=== PATIENT | male | born 1970 | race Caucasian/White ===

== ENCOUNTER 2017-03-06 14:27 | Emergency (ER) | payer MEDICAID ==
[~2017-03-06] VITALS: Ht 170.2 cm; Wt 67.0 kg
[~2017-03-06 14:27] MED LIST: CIPR500T2 PO; FENT50T T-DERMAL; HYDR-3366 PO; LORA-373 PO; METR500T10 PO; PANT20TA2 PO; PROM25TA5 PO; WARF-23 PO; ZOFR4TAB3 SL
[2017-03-06 14:47] VITALS: BP 161/91; PULSE 58; RESP 22; TEMP 97.6
[2017-03-06] MEDS ORDERED: SODIUM CHLORIDE 0.9% FLUSH 10 ML FLUSH IVF PRN (15:00)
[2017-03-06] MEDS ORDERED: SODIUM CHLOR 0.9% 1000 ML INJ 1,000 ML IV ONE (15:00)
--- NOTE | 2017-03-06 15:09 | PD ---
HPI Chief Complaint: Seizure Time Seen by Provider: 14:48 Travel History International Travel<30 days: No Contact w/Intl Traveler<30days: No Traveled to known affect area: No History of Present Illness HPI But they haven't found out what causes seizures yet. The patient states that he is currently weaning off fentanyl and his doctor is cutting his doses down because they do not want him on chronic pain medicine. He is on chronic pain medicine for abdominal pain secondary to chronic gastroparesis. No family members available at the bedside initially but nursing convey that the girlfriend stated that the patient was told that he was not having seizures on several prior evaluations. Patient also endorses some nausea and vomiting for the past couple of days. States he is able to tolerate Pedialyte at home. Symptoms are moderate, constant, context is fentanyl withdrawal, duration is the past few days. PFSH Past Medical History Hx Anticoagulant Therapy: Yes (warfarin) Arthritis: No Asthma: No Autoimmune Disease: No Blood Disorders: No Anxiety: Yes Depression: No Heart Rhythm Problems: No Cancer: No Cardiovascular Problems: No High Cholesterol: Yes Chemotherapy: No Chest Pain: Yes Congestive Heart Failure: No COPD: No Cerebrovascular Accident: No Diabetes: Yes Diminished Hearing: No Endocrine: No Gastrointestinal Disorders: Yes (GASTROPARESIS) GERD: Yes Genitourinary: Yes Headaches: Yes Hiatal Hernia: Yes Hypertension: No Immune Disorder: No Implanted Vascular Access Dvce: No Kidney Stones: Yes Musculoskeletal: Yes (CRAMPING IN LEGS) Neurologic: Yes (NUMBNESS HANDS AND LEGS, VERTIGO) Psychiatric: Yes Reproductive: No Respiratory: No Immunizations Current: Yes Migraines: Yes Radiation Therapy: No Renal Failure: No Seizures: Yes (possibly) Sleep Apnea: No Thyroid Disease: No Ulcer: No ?: Not Past Surgical History Abdominal Surgery: Yes (UMBILICAL HERNIA REPAIR,J-TUBE PLACEMENT, J-TUBE REMOVAL) AICD: No Cardiac Surgery: No Ear Surgery: No Endocrine Surgery: No Eye Surgery: No Genitourinary Surgery: No Gynecologic Surgery: No Joint Replacement: No Neurologic Surgery: No Oral Surgery: No Pacemaker: No Thoracic Surgery: No Other Surgery: Yes (UMBILICAL HERNIA REPAIR, J-TUBE PLACEMENT) Social History Alcohol Use: No Tobacco Use: No Substance Use: Yes (MARIJUANA OCCAS) Allergies-Medications (Allergen,Severity, Reaction): Coded Allergies: metoclopramide (Unverified Adverse Reaction, Unknown, DIZZY, SYNCOPAL EPISODES , 03/06/17) Reported Meds & Prescriptions Reported Meds & Active Scripts Active Reported Phenergan (Promethazine HCl) 25 Mg Tablet 25 Mg PO Q6H PRN Warfarin 5 Mg Tab 5 Mg PO DAILY@1600 Pantoprazole (Pantoprazole Sodium) 20 Mg Tab 20 Mg PO BID Zofran Odt (Ondansetron Odt) 4 Mg Tab 4 Mg SL DIRECTED PRN Convoy (Hydrocodone-Acetaminophen) 10-325 Mg Tab 1 Tab PO Q6H PRN Lorazepam 0.5 Mg Tab 0.5 Mg PO BID Duragesic Patch 72 HR (Fentanyl) 50 Mcg/Hr Patch 50 Mcg T-DERMAL Q72H Remove old patch when new one placed. Review of Systems Except as stated in HPI: all other systems reviewed are Neg Physical Exam Narrative GENERAL: Well-developed well-nourished, no obvious distress. SKIN: Focused skin assessment warm/dry. HEAD: Atraumatic. Normocephalic. EYES: Pupils equal and round. No scleral icterus. No injection or drainage. ENT: No nasal bleeding or discharge. Mucous membranes pink and moist. No tongue laceration. NECK: Trachea midline. No JVD. CARDIOVASCULAR: Regular rate and rhythm. No murmur appreciated. RESPIRATORY: No accessory muscle use. Clear to auscultation. Breath sounds equal bilaterally. GASTROINTESTINAL: Abdomen soft, non-tender, nondistended. Hepatic and splenic margins not palpable. Normal active bowel sounds. No rebound no percussive tenderness. MUSCULOSKELETAL: No obvious deformities. No clubbing. No cyanosis. No edema. NEUROLOGICAL: Awake and alert. Cranial nerves II-12 are grossly intact and nonfocal, 5 out of 5 strength in all 4 extremities. The patient was observed and have seizure-like activity a very fast shake of his upper extremities which was able to be stopped by doing a sternal rub and the patient had no postictal phase following the tremor. PSYCHIATRIC: Appropriate mood and affect; insight and judgment normal. Data Data Last Documented VS Vital Signs Date Time Temp Pulse Resp B/P (MAP) Pulse Ox O2 Delivery O2 Flow Rate FiO2 03/06/17 17:11 40 14 143/83 (103) 100 Room Air 03/06/17 14:47 97.6 Orders Orders Electrocardiogram (03/06/17 14:56) Complete Blood Count With Diff (10/11/17 14:56) Comprehensive Metabolic Panel (03/06/17 14:56) Magnesium (Mg) (03/06/17 14:56) Prothrombin Time / Inr (Pt) (03/06/17 14:56) Act Partial Throm Time (Ptt) (03/06/17 14:56) Lipase (03/06/17 14:56) Ecg Monitoring (03/06/17 14:56) Iv Access Insert/Monitor (03/06/17 14:56) Oximetry (03/06/17 14:56) Oxygen Administration (03/06/17 14:56) Sodium Chloride 0.9% Flush (Ns Flush) (03/06/17 15:00) Ct Brain W/O Iv Contrast(Rout) (03/06/17 ) Sodium Chlor 0.9% 1000 Ml Inj (Ns 1000 M (03/06/17 15:00) Ondansetron Inj (Zofran Inj) (03/06/17 16:30) Promethazine Inj (Phenergan Inj) (03/06/17 17:30) Ed Discharge Order (03/06/17 17:41) Labs Laboratory Tests Test 03/06/17 15:15 White Blood Count 17.1 TH/MM3 Red Blood Count 4.70 MIL/MM3 Hemoglobin 14.1 GM/DL Hematocrit 42.3 % Mean Corpuscular Volume 90.0 FL Mean Corpuscular Hemoglobin 30.1 PG Mean Corpuscular Hemoglobin Concent 33.4 % Red Cell Distribution Width 14.3 % Platelet Count 227 TH/MM3 Mean Platelet Volume 10.1 FL Neutrophils (%) (Auto) 90.0 % Lymphocytes (%) (Auto) 6.8 % Monocytes (%) (Auto) 2.7 % Eosinophils (%) (Auto) 0.3 % Basophils (%) (Auto) 0.2 % Neutrophils # (Auto) 15.4 TH/MM3 Lymphocytes # (Auto) 1.2 TH/MM3 Monocytes # (Auto) 0.5 TH/MM3 Eosinophils # (Auto) 0.0 TH/MM3 Basophils # (Auto) 0.0 TH/MM3 CBC Comment DIFF FINAL Differential Comment Prothrombin Time 12.1 SEC Prothromb Time International Ratio 1.1 RATIO Activated Partial Thromboplast Time 30.0 SEC Blood Urea Nitrogen 6 MG/DL Creatinine 0.89 MG/DL Random Glucose 136 MG/DL Total Protein 7.6 GM/DL Albumin 3.9 GM/DL Calcium Level 8.9 MG/DL Magnesium Level 1.9 MG/DL Alkaline Phosphatase 113 U/L Aspartate Amino Transf (AST/SGOT) 16 U/L Alanine Aminotransferase (ALT/SGPT) 16 U/L Total Bilirubin 0.6 MG/DL Sodium Level 138 MEQ/L Potassium Level 4.1 MEQ/L Chloride Level 106 MEQ/L Carbon Dioxide Level 23.2 MEQ/L Anion Gap 9 MEQ/L Estimat Glomerular Filtration Rate 92 ML/MIN Lipase 104 U/L [facility] Medical Decision Making Medical Screen Exam Complete: Yes Emergency Medical Condition: Yes Differential Diagnosis Seizure, pseudoseizure, electrolyte abnormality, opiate withdrawal. Narrative Course Patient roomed emerged department, had several episodes of dry heaving, one episode of what appeared to be pseudoseizure. Patient's labs are reassuring other than a white blood cell count of 17,000. Electrolytes are within normal limits, CAT scan of the head negative. Patient was given Zofran 8 mg IV and continued have some mild dry heaves. He was given a dose of Phenergan and was feeling a little bit better. He has been able tolerate by mouth fluids at home. At this time there is no indication for admission and I think he is stable for discharge. Diagnosis Primary Impression: Nausea and vomiting Qualified Codes: R11.2 - Nausea with vomiting, unspecified Additional Impression: Pseudoseizure Disposition: 01 DISCHARGE HOME Condition: Stable Duong Travis MD Mar 06, 2017 15:09
[2017-03-06] MEDS ORDERED: PROM25TA10 PO (15:17)
[2017-03-06 15:33] LABS: AUTOMATED NEUTROPHIL # 15.4 TH/MM3 (1.8-7.7); BASOPHIL % 0.2 % (0.0-2.0); EOSINOPHIL % 0.3 % (0.0-4.0); HEMATOCRIT 42.3 % (39.0-51.0); HEMO FLAGS DIFF FINAL; LYMPH % 6.8 % (9.0-44.0); LYMPHOCYTE # 1.2 TH/MM3 (1.0-4.8); MEAN CORPUSCULAR HEMOGLOBIN 30.1 PG (27.0-34.0); MEAN CORPUSCULAR HGB CONC 33.4 % (32.0-36.0); MONO % 2.7 % (0.0-8.0); PLATELET COUNT 227 TH/MM3 (150-450); RED CELL DISTRIBUTION WIDTH 14.3 % (11.6-17.2); WHITE BLOOD COUNT 17.1 TH/MM3 (4.0-11.0)
[2017-03-06 15:35] VITALS: BP 147/79; PULSE 42; RESP 16; O2SAT 97; O2SAT 99
[2017-03-06 15:41] LABS: INTERNATIONAL NORMALIZED RATIO 1.1 RATIO; PROTHROMBIN TIME - PATIENT 12.1 SEC (9.8-11.6)
[2017-03-06 16:00] LABS: ANION GAP 9 MEQ/L (5-15); AST (GOT) 16 U/L (15-37); BICARBONATE 23.2 MEQ/L (21.0-32.0); BLOOD UREA NITROGEN 6 MG/DL (7-18); CHLORIDE 106 MEQ/L (98-107); GLOMERULAR FILTRATION RATE 92 ML/MIN (>89); MAGNESIUM 1.9 MG/DL (1.5-2.5); POTASSIUM 4.1 MEQ/L (3.5-5.1); SODIUM (NA) 138 MEQ/L (136-145)
[2017-03-06 16:02] LABS: ALKALINE PHOSPHATASE 113 U/L (45-117); ALT (GPT) 16 U/L (12-78); TOTAL BILIRUBIN ADULT 0.6 MG/DL (0.2-1.0)
--- NOTE | 2017-03-06 16:17 | RADRPT ---
EXAM DATE/TIME: 03/06/2017 15:58 [facility] COMPARISON: CT BRAIN W/O CONTRAST, April 23, 2016, 13:32. INDICATIONS : Headaches for three days with vomiting. RADIATION DOSE: 35.48 CTDIvol (mGy) MEDICAL HISTORY : Seizures. Diabetes mellitus type 2. Syncope. SURGICAL HISTORY : None. ENCOUNTER: Initial ACUITY: 3 days PAIN SCALE: 8/10 LOCATION: Bilateral cranial TECHNIQUE: Multiple contiguous axial images were obtained of the head. Using automated exposure control and adj ustment of the mA and/or kV according to patient size, radiation dose was kept as low as reasonably a chievable to obtain optimal diagnostic quality images. DICOM format image data is available electro nically for review and comparison. FINDINGS: CEREBRUM: The ventricles are normal for age. No evidence of midline shift, mass lesion, hemorrhage or acute in farction. No extra-axial fluid collections are seen. POSTERIOR FOSSA: The cerebellum and brainstem are intact. The 4th ventricle is midline. The cerebellopontine angle i s unremarkable. EXTRACRANIAL: The visualized portion of the orbits is intact. SKULL: The calvaria is intact. No evidence of skull fracture. CONCLUSION: Normal examination. Kingsley Mann Jr., MD on March 06, 2017 at 16:14 Board Certified Radiologist. This report was verified electronically.
[2017-03-06] MEDS ORDERED: ONDANSETRON HCL 4 MG/2 ML VIAL IV PUSH ONE (16:30)
[2017-03-06 17:11] VITALS: BP 143/83; PULSE 40; RESP 14; O2SAT 100
[2017-03-06] MEDS ORDERED: PROMETHAZINE INJ 25 MG/ML VIAL IM ONE (17:30)
[2017-03-06] MEDS ORDERED: PROCHLORPERAZINE INJ 10 MG/2 ML VIAL IV PUSH ONE (20:15)
[2017-03-06] MEDS ORDERED: diphenhydrAMINE HCL 50 MG/ML VIAL IV PUSH ONE (20:15)
--- NOTE | 2017-03-07 12:27 | EKG ---
Date Performed: 03/06/2017 Time Performed: 15:26:40 PTAGE: 46 years EKG: SINUS BRADYCARDIA WITH SINUS ARRHYTHMIA BORDERLINE ECG PREVIOUS TRACING : 04/23/2016 09.47 Compared to prior tracing no significant change DOCTOR: Kerline Marcos Interpretating Date/Time 03/07/2017 12:22:56
== END 2017-03-06 21:20 | disposition home or self-care (01) ==
LOC: NEPD 14:27
DX: R11.2 Nausea with vomiting, unspecified (principal); F44.5 Conversion disorder with seizures or convulsions; G89.29 Other chronic pain; K31.84 Gastroparesis; E11.43 Type 2 diabetes mellitus with diabetic autonomic (poly)neuropathy; Z79.01 Long term (current) use of anticoagulants; E78.00 Pure hypercholesterolemia, unspecified; K21.9 Gastro-esophageal reflux disease without esophagitis; K44.9 Diaphragmatic hernia without obstruction or gangrene
CPT/HCPCS: 70450; 80053; 83690; 83735; 85025; 85610; 85730; 93005; 96361; 96372; 96374; 96375; 99285; J0780; J1200; J2405; J2550; J7030

== ENCOUNTER 2017-07-26 13:29 | Observation (INO) | payer MEDICAID ==
[2017-07-26] VITALS (11 sets, daily range): BP systolic 112–160; BP diastolic 64–111; PULSE 50–88; RESP 12–22; TEMP 98.3–98.6; O2SAT 97–100
[~2017-07-26] VITALS: Ht 170.2 cm; Wt 68.0 kg
[~2017-07-26 13:29] MED LIST changes: -CIPR500T2 PO; -LORA-373 PO; +LORA0.5T PO; -METR500T10 PO; +PROM25TA10 PO; -PROM25TA5 PO
--- NOTE | 2017-07-26 15:03 | PD ---
Physical Exam Time Seen by Provider: 15:03 Narrative Patient presents to emergency department for evaluation of a chest pressure, initially began last evening. He woke up again with her today. Please refer to my attending physician documentation for details regarding the patient's current visit. Data Data Last Documented VS Vital Signs Date Time Temp Pulse Resp B/P (MAP) Pulse Ox O2 Delivery O2 Flow Rate FiO2 07/26/17 15:15 69 12 158/94 (115) 100 Nasal Cannula 2.00 07/26/17 13:34 98.6 Orders Orders Electrocardiogram (07/26/17 13:36) Complete Blood Count With Diff (07/26/17 13:36) Basic Metabolic Panel (Bmp) (07/26/17 13:36) Ckmb (Isoenzyme) Profile (07/26/17 13:36) Troponin I (07/26/17 13:36) Prothrombin Time / Inr (Pt) (07/26/17 15:02) Act Partial Throm Time (Ptt) (07/26/17 15:02) Chest, Single Ap (07/26/17 15:02) Ecg Monitoring (07/26/17 15:02) Bilateral Bp Monitoring (07/26/17 15:02) Iv Access Insert/Monitor (07/26/17 15:02) Oximetry (07/26/17 15:02) Oxygen Administration (07/26/17 15:02) Sodium Chloride 0.9% Flush (Ns Flush) (07/26/17 15:15) Nitroglycerin Sl (Nitrostat Sl) (07/26/17 15:15) Sodium Chlorid 0.9% 500 Ml Inj (Ns 500 M (07/26/17 15:15) Sodium Chlorid 0.9% 500 Ml Inj (Ns 500 M (07/26/17 15:30) Magnesium (Mg) (07/26/17 13:36) CKMB (07/26/17 15:30) CKMB% (07/26/17 15:30) Admit Order (Ed Use Only) (07/26/17 16:36) Labs Laboratory Tests Test 07/26/17 15:30 White Blood Count 8.5 TH/MM3 Red Blood Count 5.01 MIL/MM3 Hemoglobin 15.2 GM/DL Hematocrit 44.5 % Mean Corpuscular Volume 88.9 FL Mean Corpuscular Hemoglobin 30.4 PG Mean Corpuscular Hemoglobin Concent 34.2 % Red Cell Distribution Width 14.6 % Platelet Count 226 TH/MM3 Mean Platelet Volume 9.8 FL Neutrophils (%) (Auto) 64.6 % Lymphocytes (%) (Auto) 24.8 % Monocytes (%) (Auto) 8.7 % Eosinophils (%) (Auto) 1.0 % Basophils (%) (Auto) 0.9 % Neutrophils # (Auto) 5.5 TH/MM3 Lymphocytes # (Auto) 2.1 TH/MM3 Monocytes # (Auto) 0.7 TH/MM3 Eosinophils # (Auto) 0.1 TH/MM3 Basophils # (Auto) 0.1 TH/MM3 CBC Comment DIFF FINAL Differential Comment Prothrombin Time 19.3 SEC Prothromb Time International Ratio 1.9 RATIO Activated Partial Thromboplast Time 42.8 SEC Blood Urea Nitrogen 9 MG/DL Creatinine 0.90 MG/DL Random Glucose 92 MG/DL Calcium Level 9.0 MG/DL Magnesium Level 2.2 MG/DL Sodium Level 138 MEQ/L Potassium Level 4.1 MEQ/L Chloride Level 107 MEQ/L Carbon Dioxide Level 26.5 MEQ/L Anion Gap 5 MEQ/L Estimat Glomerular Filtration Rate 90 ML/MIN Total Creatine Kinase 175 U/L Creatine Kinase MB 1.0 NG/ML Troponin I LESS THAN 0.02 NG/ML [facility] Medical Record Reviewed: Yes Supervised Visit with SHANNON: No Narrative Course Patient presents emergency department for evaluation of a chest pressure first began last evening and noticed again this morning persisted throughout the day. Patient has no cardiac history. Cardiac workup was initiated and care is assumed by my attending physician. Please refer to her documentation for details from the patient's current visit. Diagnosis Primary Impression: Atypical chest pain Condition: Stable Romina HendersonP Jul 26, 2017 15:03
[2017-07-26] MEDS ORDERED: NITROGLYCERIN 0.4 MG SL 25 TABS/BTL SL SCH (15:15)
[2017-07-26] MEDS ORDERED: SODIUM CHLORID 0.9% 500 ML INJ 500 ML IV ONE ×2 (15:15→15:30)
[2017-07-26] MEDS ORDERED: SODIUM CHLORIDE 0.9% FLUSH 10 ML FLUSH IVF PRN (15:15)
[2017-07-26 16:08] LABS: AUTOMATED NEUTROPHIL # 5.5 TH/MM3 (1.8-7.7); BASOPHIL # 0.1 TH/MM3 (0-0.2); BASOPHIL % 0.9 % (0.0-2.0); EOSINOPHIL # 0.1 TH/MM3 (0-0.4); HEMATOCRIT 44.5 % (39.0-51.0); HEMOGLOBIN 15.2 GM/DL (13.0-17.0); LYMPH % 24.8 % (9.0-44.0); LYMPHOCYTE # 2.1 TH/MM3 (1.0-4.8); MEAN CELL VOLUME 88.9 FL (80.0-100.0); MEAN CORPUSCULAR HEMOGLOBIN 30.4 PG (27.0-34.0); MEAN CORPUSCULAR HGB CONC 34.2 % (32.0-36.0); MEAN PLATELET VOLUME 9.8 FL (7.0-11.0); MONO % 8.7 % (0.0-8.0); MONOCYTE # 0.7 TH/MM3 (0-0.9); NEUT % 64.6 % (16.0-70.0); PLATELET COUNT 226 TH/MM3 (150-450); RED BLOOD COUNT 5.01 MIL/MM3 (4.50-5.90); RED CELL DISTRIBUTION WIDTH 14.6 % (11.6-17.2); WHITE BLOOD COUNT 8.5 TH/MM3 (4.0-11.0)
--- NOTE | 2017-07-26 16:17 | RADRPT ---
EXAM DATE/TIME: 07/26/2017 15:56 [facility] COMPARISON: CHEST SINGLE AP, July 09, 2015, 23:13. INDICATIONS : Patient complains of chest pain. MEDICAL HISTORY : None. SURGICAL HISTORY : None. ENCOUNTER: Initial ACUITY: 2 days PAIN SCORE: 7/10 LOCATION: chest FINDINGS: A single view of the chest demonstrates the lungs to be symmetrically aerated without evidence of mas s, infiltrate or effusion. The cardiomediastinal contours are unremarkable. Osseous structures are intact. CONCLUSION: 1. No acute cardiopulmonary disease. Yeison Mancilla MD on July 26, 2017 at 16:16 Board Certified Radiologist. This report was verified electronically.
[2017-07-26 16:20] LABS: INTERNATIONAL NORMALIZED RATIO 1.9 RATIO; PROTHROMBIN TIME - PATIENT 19.3 SEC (9.8-11.6)
[2017-07-26 16:28] LABS: BICARBONATE 26.5 MEQ/L (21.0-32.0); BLOOD UREA NITROGEN 9 MG/DL (7-18); CHLORIDE 107 MEQ/L (98-107); GLOMERULAR FILTRATION RATE 90 ML/MIN (>89); GLUCOSE,RANDOM 92 MG/DL (74-106); MAGNESIUM 2.2 MG/DL (1.5-2.5); SODIUM (NA) 138 MEQ/L (136-145)
[2017-07-26 16:31] LABS: TROPONIN I LESS THAN 0.02 NG/ML (0.02-0.05)
--- NOTE | 2017-07-26 16:44 | PD ---
HPI Chief Complaint: Chest Pain Time Seen by Provider: 14:56 Travel History International Travel<30 days: No Contact w/Intl Traveler<30days: No Traveled to known affect area: No History of Present Illness HPI 46-year-old male came to the emergency room with history of chest pressure. Patient describes this chest pressure as he is 1-year-old sitting on his chest. This started yesterday when it had been on and off. But since this morning it has been continuous. Also been lightheaded. No history of syncopal episode. He called his primary care and he was asked to come to the emergency room. Vital signs are stable. Patient does not have any previous history of coronary artery disease. He has never had a workup for coronary artery disease. 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 Currently he says his chest pressure is 7 out of 10. It's in the center of the chest radiating to both sides. No aggravating or relieving factors identified. Patient is not a smoker. [facility] Past Medical History Narrative Medical List of his past medical, surgical, social and family history is reviewed from the nursing note. Hx Anticoagulant Therapy: Yes (COUMADIN) Arthritis: No Asthma: No Autoimmune Disease: No Blood Disorders: No Anxiety: Yes Depression: No Heart Rhythm Problems: No Cancer: No Cardiovascular Problems: Yes High Cholesterol: Yes Chemotherapy: No Chest Pain: Yes Congestive Heart Failure: No COPD: No Cerebrovascular Accident: No Diabetes: Yes Patient Takes Glucophage: No Diminished Hearing: No Endocrine: No Gastrointestinal Disorders: Yes (GASTROPARESIS) GERD: Yes Genitourinary: Yes Headaches: Yes Hiatal Hernia: Yes Hypertension: No Immune Disorder: No Implanted Vascular Access Dvce: No Kidney Stones: Yes Musculoskeletal: Yes (CRAMPING IN LEGS) Neurologic: Yes (NUMBNESS HANDS AND LEGS, VERTIGO) Psychiatric: Yes Reproductive: No Respiratory: No Immunizations Current: Yes Migraines: Yes Radiation Therapy: No Renal Failure: No Seizures: Yes Sleep Apnea: No Thyroid Disease: No Ulcer: No Past Surgical History Abdominal Surgery: Yes (UMBILICAL HERNIA REPAIR,J-TUBE PLACEMENT, J-TUBE REMOVAL) AICD: No Cardiac Surgery: No Ear Surgery: No Endocrine Surgery: No Eye Surgery: No Genitourinary Surgery: No Gynecologic Surgery: No Joint Replacement: No Neurologic Surgery: No Oral Surgery: No Pacemaker: No Thoracic Surgery: No Other Surgery: Yes (UMBILICAL HERNIA REPAIR, J-TUBE PLACEMENT, removed part of small instestine) Social History Alcohol Use: No Tobacco Use: No Substance Use: Yes (marijuana) Allergies-Medications (Allergen,Severity, Reaction): Coded Allergies: metoclopramide (Unverified Adverse Reaction, Unknown, DIZZY, SYNCOPAL EPISODES , 07/26/17) Comments List of his allergies reviewed from the nursing note. Reported Meds & Prescriptions Reported Meds & Active Scripts Active Reported Phenergan (Promethazine HCl) 25 Mg Tablet 25 Mg PO Q6H PRN Pantoprazole (Pantoprazole Sodium) 20 Mg Tab 20 Mg PO BID Zofran Odt (Ondansetron Odt) 4 Mg Tab 4 Mg SL Q6HR PRN [place] (Hydrocodone-Acetaminophen) 10-325 Mg Tab 1 Tab PO Q6H PRN Narrative Medication List of his home medications reviewed from the nursing note. Review of Systems Except as stated in HPI: all other systems reviewed are Neg Cardiovascular: Positive: Chest Pain or Discomfort Physical Exam Narrative GENERAL: Awake, alert, anxious, moderate distress SKIN: Focused skin assessment warm/dry. HEAD: Atraumatic. Normocephalic. EYES: Pupils equal and round. No scleral icterus. No injection or drainage. ENT: No nasal bleeding or discharge. Mucous membranes pink and moist. NECK: Trachea midline. No JVD. CARDIOVASCULAR: Regular rate and rhythm. No murmur appreciated. RESPIRATORY: No accessory muscle use. Clear to auscultation. Breath sounds equal bilaterally. GASTROINTESTINAL: Abdomen soft, non-tender, nondistended. Hepatic and splenic margins not palpable. MUSCULOSKELETAL: No obvious deformities. No clubbing. No cyanosis. No edema. NEUROLOGICAL: Awake and alert. No obvious cranial nerve deficits. Motor grossly within normal limits. Normal speech. PSYCHIATRIC: Appropriate mood and affect; insight and judgment normal. Data Data Last Documented VS Vital Signs Date Time Temp Pulse Resp B/P (MAP) Pulse Ox O2 Delivery O2 Flow Rate FiO2 07/26/17 16:30 80 20 122/81 (95) 100 Nasal Cannula 2.00 07/26/17 13:34 98.6 Orders Orders Electrocardiogram (07/26/17 13:36) Complete Blood Count With Diff (07/26/17 13:36) Basic Metabolic Panel (Bmp) (07/26/17 13:36) Ckmb (Isoenzyme) Profile (07/26/17 13:36) Troponin I (07/26/17 13:36) Prothrombin Time / Inr (Pt) (07/26/17 15:02) Act Partial Throm Time (Ptt) (07/26/17 15:02) Chest, Single Ap (07/26/17 15:02) Ecg Monitoring (07/26/17 15:02) Bilateral Bp Monitoring (07/26/17 15:02) Iv Access Insert/Monitor (07/26/17 15:02) Oximetry (07/26/17 15:02) Oxygen Administration (07/26/17 15:02) Sodium Chloride 0.9% Flush (Ns Flush) (07/26/17 15:15) Nitroglycerin Sl (Nitrostat Sl) (07/26/17 15:15) Sodium Chlorid 0.9% 500 Ml Inj (Ns 500 M (07/26/17 15:15) Sodium Chlorid 0.9% 500 Ml Inj (Ns 500 M (07/26/17 15:30) Magnesium (Mg) (07/26/17 13:36) CKMB (07/26/17 15:30) CKMB% (07/26/17 15:30) Admit Order (Ed Use Only) (07/26/17 16:36) Labs Laboratory Tests Test 07/26/17 15:30 White Blood Count 8.5 TH/MM3 Red Blood Count 5.01 MIL/MM3 Hemoglobin 15.2 GM/DL Hematocrit 44.5 % Mean Corpuscular Volume 88.9 FL Mean Corpuscular Hemoglobin 30.4 PG Mean Corpuscular Hemoglobin Concent 34.2 % Red Cell Distribution Width 14.6 % Platelet Count 226 TH/MM3 Mean Platelet Volume 9.8 FL Neutrophils (%) (Auto) 64.6 % Lymphocytes (%) (Auto) 24.8 % Monocytes (%) (Auto) 8.7 % Eosinophils (%) (Auto) 1.0 % Basophils (%) (Auto) 0.9 % Neutrophils # (Auto) 5.5 TH/MM3 Lymphocytes # (Auto) 2.1 TH/MM3 Monocytes # (Auto) 0.7 TH/MM3 Eosinophils # (Auto) 0.1 TH/MM3 Basophils # (Auto) 0.1 TH/MM3 CBC Comment DIFF FINAL Differential Comment Prothrombin Time 19.3 SEC Prothromb Time International Ratio 1.9 RATIO Activated Partial Thromboplast Time 42.8 SEC Blood Urea Nitrogen 9 MG/DL Creatinine 0.90 MG/DL Random Glucose 92 MG/DL Calcium Level 9.0 MG/DL Magnesium Level 2.2 MG/DL Sodium Level 138 MEQ/L Potassium Level 4.1 MEQ/L Chloride Level 107 MEQ/L Carbon Dioxide Level 26.5 MEQ/L Anion Gap 5 MEQ/L Estimat Glomerular Filtration Rate 90 ML/MIN Total Creatine Kinase 175 U/L Creatine Kinase MB 1.0 NG/ML Troponin I LESS THAN 0.02 NG/ML MDM Medical Decision Making Medical Screen Exam Complete: Yes Emergency Medical Condition: Yes Medical Record Reviewed: Yes Interpretation(s) Twelve-lead EKG was reviewed by me. Normal sinus rhythm, normal axis, nonspecific ST-T wave changes. Heart rate of 78 bpm. Differential Diagnosis Chest pain, ACS, non-STEMI Narrative Course 4:42 PM blood test results are back. Patient was given some sublingual nitroglycerin. Blood tests are within acceptable limits. Her neck to admit him to the chest pain center for his typical chest pain. This was discussed with the patient and he is agreeable to the plan. Procedures EKG Prior to Arrival: No Diagnosis Primary Impression: chest pain Admitting Information Admitting Physician Requests: Observation Alysia Kebede MD Jul 26, 2017 16:44
[2017-07-26] MEDS ORDERED: ACETAMINOPHEN 500 MG CPLT PO PRN (17:00)
[2017-07-26] MEDS ORDERED: ONDANSETRON HCL 4 MG/2 ML VIAL IV PUSH PRN (17:00)
[2017-07-26] MEDS ORDERED: ACETAMINOPHEN/HYDROcodone 325 MG/7.5 MG TAB PO PRN (17:00)
[2017-07-26 20:00] LABS: TROPONIN I LESS THAN 0.02 NG/ML (0.02-0.05)
[2017-07-26 22:11] LABS: TROPONIN I LESS THAN 0.02 NG/ML (0.02-0.05)
[2017-07-27 01:54] VITALS: BP 139/77; PULSE 49; RESP 17; TEMP 98.3; O2SAT 98
[2017-07-27 04:44] VITALS: BP 128/74; PULSE 52; RESP 17; TEMP 98.2; O2SAT 95
[2017-07-27 07:27] VITALS: PULSE 61
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
[2017-07-27] MEDS ORDERED: COUM10TA PO (08:27)
[2017-07-27 08:30] VITALS: BP 142/99; PULSE 72; RESP 16; TEMP 97.5; O2SAT 96
[2017-07-27] MEDS ORDERED: WARFARIN SOD 10 MG TAB PO SCH (09:00)
[2017-07-27] MEDS ORDERED: ASPIRIN 325 MG TAB PO SCH (09:00)
[2017-07-27] MEDS ORDERED: ASPIRIN 81 MG CHEW TAB CHEW SCH (09:00)
--- NOTE | 2017-07-27 10:28 | PD.CARD.PN ---
Subjective Subjective Remarks Patient seen and evaluated personally, records reviewed, and discussed with nurse practitioner. 46-year-old gentleman who experienced generalized weakness shortness of breath flushing dizziness sweating and chest pressure yesterday. He believed his blood pressure was elevated and was very concerned because he has a history of blood, clots in his on Coumadin. He has a very strong family history at a young age. He is obviously very anxious and was under a lot of stress yesterday. Because of his family history he was quite concerned about his heart and presented to the emergency room. Objective Medications Current Medications Medications (Trade) Dose Ordered Sig/[place]ila Route Start Time Stop Time Status Last Admin (NS Flush) 2 ml UNSCH PRN IVF 07/26/17 15:15 07/26/17 15:52 (Tylenol) 500 mg Q4H PRN PO 07/26/17 17:00 ([place] 7.5-325 Mg) 1 tab Q4H PRN PO 07/26/17 17:00 (Zofran Inj) 4 mg Q6H PRN IV PUSH 07/26/17 17:00 (Coumadin) 10 mg DAILY PO 07/27/17 09:00 07/27/17 08:52 (Aspirin Chew) 81 mg DAILY CHEW 07/27/17 09:00 07/27/17 08:52 Vital Signs / I&O Vital Signs Date Time Temp Pulse Resp B/P (MAP) Pulse Ox O2 Delivery O2 Flow Rate FiO2 07/27/17 08:30 97.5 72 16 142/99 (113) 96 07/27/17 07:27 61 07/27/17 04:44 98.2 52 17 128/74 (92) 95 07/27/17 01:54 98.3 49 17 139/77 (97) 98 07/26/17 21:20 98.3 50 18 150/76 (100) 98 07/26/17 18:30 64 22 125/72 (89) 98 Nasal Cannula 2.00 07/26/17 18:00 56 19 133/64 (87) 99 Nasal Cannula 2.00 07/26/17 17:30 56 19 124/73 (90) 99 Nasal Cannula 2.00 07/26/17 17:00 58 18 112/74 (87) 98 Nasal Cannula 2.00 07/26/17 16:30 80 20 122/81 (95) 100 Nasal Cannula 2.00 07/26/17 16:00 82 19 149/93 (111) 97 Nasal Cannula 2.00 07/26/17 16:00 12 07/26/17 15:15 69 12 158/94 (115) 100 Nasal Cannula 2.00 07/26/17 15:12 65 12 155/111 (126) 99 Nasal Cannula 2.00 158/94 (115) 07/26/17 15:11 96 Nasal Cannula 2.00 07/26/17 15:11 99 Nasal Cannula 2.00 07/26/17 13:34 98.6 88 18 160/111 (127) 99 I/O 07/26/17 07/26/17 07/26/17 07/27/17 07/27/17 07/27/17 07:00 15:00 23:00 07:00 15:00 23:00 Intake Total 500 ml Balance 500 ml Intake IV Total 500 ml # Voids 1 Physical Exam Patient sitting on the bedside is pain-free but gives the impression of anxiety. Well-nourished well-developed with several tattoos Neck supple no JVD masses nodes or bruits Chest is clear to auscultation with good breath sounds no rales wheezes or rhonchi Cardiovascular reveals a regular sinus rhythm with no gallops rubs or murmurs Extremities no clubbing cyanosis or edema Laboratory Laboratory Tests Test 07/26/17 15:30 07/26/17 19:03 07/26/17 21:30 White Blood Count 8.5 TH/MM3 Red Blood Count 5.01 MIL/MM3 Hemoglobin 15.2 GM/DL Hematocrit 44.5 % Mean Corpuscular Volume 88.9 FL Mean Corpuscular Hemoglobin 30.4 PG Mean Corpuscular Hemoglobin Concent 34.2 % Red Cell Distribution Width 14.6 % Platelet Count 226 TH/MM3 Mean Platelet Volume 9.8 FL Neutrophils (%) (Auto) 64.6 % Lymphocytes (%) (Auto) 24.8 % Monocytes (%) (Auto) 8.7 % Eosinophils (%) (Auto) 1.0 % Basophils (%) (Auto) 0.9 % Neutrophils # (Auto) 5.5 TH/MM3 Lymphocytes # (Auto) 2.1 TH/MM3 Monocytes # (Auto) 0.7 TH/MM3 Eosinophils # (Auto) 0.1 TH/MM3 Basophils # (Auto) 0.1 TH/MM3 CBC Comment DIFF FINAL Differential Comment Prothrombin Time 19.3 SEC Prothromb Time International Ratio 1.9 RATIO Activated Partial Thromboplast Time 42.8 SEC Blood Urea Nitrogen 9 MG/DL Creatinine 0.90 MG/DL Random Glucose 92 MG/DL Calcium Level 9.0 MG/DL Magnesium Level 2.2 MG/DL Sodium Level 138 MEQ/L Potassium Level 4.1 MEQ/L Chloride Level 107 MEQ/L Carbon Dioxide Level 26.5 MEQ/L Anion Gap 5 MEQ/L Estimat Glomerular Filtration Rate 90 ML/MIN Total Creatine Kinase 175 U/L 112 U/L 131 U/L Creatine Kinase MB 1.0 NG/ML 1.0 NG/ML 1.1 NG/ML Troponin I LESS THAN 0.02 NG/ML LESS THAN 0.02 NG/ML LESS THAN 0.02 NG/ML Imaging Last 24 hours Impressions Chest X-Ray 07/26/17 1502 Signed Impressions: Service Date/Time: Wednesday, July 26, 2017 15:56 - CONCLUSION: 1. No acute cardiopulmonary disease. Yeison Mancilla MD Assessment and Plan Problem List: (1) Chest pain ICD Codes: R07.9 - Chest pain, unspecified Plan: Patient is ruled out using standard chest pain center protocol and underwent an negative exercise stress test. He will be discharged to follow-up with his primary care physician with instructions regarding blood pressure and appropriate use of his Coumadin. Assessment and Plan Discharged to follow-up with his primary care physician Code Status Full code Discussed Condition With Situation was discussed with the patient with review of his testing results. Enmanuel Tanner MD Jul 27, 2017 10:28
[2017-07-27 11:12] VITALS: BP 147/104; PULSE 71; RESP 20; TEMP 98.1; O2SAT 95
--- NOTE | 2017-07-27 11:27 | HHI.DCPOC ---
Discharge Care Plan Diagnosis: (1) Atypical chest pain (2) DVT (deep venous thrombosis) (3) Family history of early CAD Goals to Promote Your Health * To prevent worsening of your condition and complications * To maintain your health at the optimal level Directions to Meet Your Goals Take your medications as prescribed Follow your dietary instruction Follow activity as directed Keep your appointments as scheduled Take your immunizations and boosters as scheduled If your symptoms worsen call your PCP, if no PCP go to Urgent Care Center or Emergency Room Smoking is Dangerous to Your Health. Avoid second hand smoke Call the 24-hour hour crisis hotline for domestic abuse at Alexandria Shafer Jul 27, 2017 11:27
[2017-07-27 11:33] LABS: CHOLESTEROL/ HDL RATIO 3.48 RATIO
[2017-07-27 11:49] VITALS: BP 140/92
--- NOTE | 2017-07-27 13:29 | EKG ---
Date Performed: 07/26/2017 Time Performed: 21:30:18 PTAGE: 46 years EKG: Sinus rhythm WITH SINUS ARRHYTHMIA NORMAL ECG NO CHANGE PREVIOUS TRACING : 07/26/2017 19.05 DOCTOR: Enmanuel Tanner Interpretating Date/Time 07/27/2017 13:27:39
--- NOTE | 2017-07-27 13:30 | EKG ---
Date Performed: 07/26/2017 Time Performed: 19:05:34 PTAGE: 46 years EKG: SINUS BRADYCARDIA BORDERLINE ECG NO CHANGE PREVIOUS TRACING : 07/26/2017 13.42 DOCTOR: Enmanuel Tanner Interpretating Date/Time 07/27/2017 13:29:00
--- NOTE | 2017-07-27 13:31 | EKG ---
Date Performed: 07/26/2017 Time Performed: 13:42:06 PTAGE: 46 years EKG: Sinus rhythm NORMAL ECG NO CHANGE PREVIOUS TRACING : 03/06/2017 15.26 DOCTOR: Enmanuel Tanner Interpretating Date/Time 07/27/2017 13:30:06
--- NOTE | 2017-07-27 16:50 | TR ---
Date Performed: 07/27/2017 Time Performed: 09:23:20 DOCTOR: Enmanuel Tanner DRUG LIST: CLINICAL HISTORY: REASON FOR TEST: Chest pain REASON FOR ENDING: OBSERVATION: CONCLUSION: Justin protocol performed and complete, test stopped secondary to reaching target hea rt rate and leg fatigure. No reproducible chest pain. No diagnostic ST changes. Good exercise toleran ce. Recovery quick and unremarkable. Maximum BH=646 Target HR Achieved=88.0% Maximum YS=370/90 Total Exercise Time=9:22 COMMENTS:
== END 2017-07-27 12:36 | disposition home or self-care (01) ==
LOC: NEPC 13:29 → NEDA 16:40 → NEPGCP 20:00
PROVIDERS: ADMIT Internal Medicine Cardiovascular Disease; ATTEND Internal Medicine Cardiovascular Disease
DX: R07.89 Other chest pain (principal); R06.02 Shortness of breath; R05 Cough; R61 Generalized hyperhidrosis; R11.0 Nausea; R42 Dizziness and giddiness; R53.1 Weakness; R00.1 Bradycardia, unspecified; I10 Essential (primary) hypertension; E78.00 Pure hypercholesterolemia, unspecified; E11.43 Type 2 diabetes mellitus with diabetic autonomic (poly)neuropathy; K31.84 Gastroparesis; K21.9 Gastro-esophageal reflux disease without esophagitis; F41.9 Anxiety disorder, unspecified; F12.90 Cannabis use, unspecified, uncomplicated; Z87.891 Personal history of nicotine dependence; Z79.01 Long term (current) use of anticoagulants; Z86.718 Personal history of other venous thrombosis and embolism; Z82.49 Family history of ischemic heart disease and other diseases of the circulatory system
CPT/HCPCS: 71045; 80048; 80061; 82550; 82552; 83735; 84484; 85025; 85610; 85730; 93005; 93017; 96360; 96361; 99285; G0378; J7040

== ENCOUNTER 2017-08-24 06:01 | Emergency (ER) | payer MEDICAID ==
[~2017-08-24] VITALS: Ht 170.2 cm; Wt 68.0 kg
[~2017-08-24 06:01] MED LIST changes: +COUM10TA PO; -FENT50T T-DERMAL; -LORA0.5T PO; -WARF-23 PO
[2017-08-24 06:06] VITALS: BP 147/89; PULSE 84; RESP 16; TEMP 97.9; O2SAT 100
[2017-08-24] MEDS ORDERED: FLUT1SPR5 EACH NARE (06:36)
[2017-08-24] MEDS ORDERED: OFLO0.3D9 LEFT EAR (06:36)
[2017-08-24] MEDS ORDERED: AUGM875T3 PO (06:36)
--- NOTE | 2017-08-24 06:39 | PD ---
HPI Chief Complaint: ENT Complaint Time Seen by Provider: 06:34 Travel History International Travel<30 days: No Contact w/Intl Traveler<30days: No Traveled to known affect area: No History of Present Illness HPI 46-year-old male on Coumadin presents for evaluation of left ear bleeding. He reports that he has had a cough and sinus congestion and pressure for the past few weeks. This evening he developed some pain and tinnitus in the left ear. He woke up this morning with bleeding from his left ear. The pain is subsided. He denies fevers, chills, shortness of breath. He has decreased hearing in the left ear. Denies recent travel or recent swimming. He has no other complaints at this time. PFSH Past Medical History Hx Anticoagulant Therapy: Yes (COUMADIN) Arthritis: No Asthma: No Autoimmune Disease: No Blood Disorders: No Anxiety: Yes Depression: No Heart Rhythm Problems: No Cancer: No Cardiac Catheterization: No Cardiovascular Problems: No High Cholesterol: No Chemotherapy: No Chest Pain: Yes Congestive Heart Failure: No COPD: No Cerebrovascular Accident: No Diabetes: No Diminished Hearing: No Endocrine: No Gastrointestinal Disorders: Yes (GASTROPARESIS) GERD: Yes Genitourinary: Yes Headaches: Yes Hiatal Hernia: Yes Hypertension: Yes Immune Disorder: No Implanted Vascular Access Dvce: No Kidney Stones: Yes Musculoskeletal: Yes (CRAMPING IN LEGS) Neurologic: Yes (NUMBNESS HANDS AND LEGS, VERTIGO) Psychiatric: Yes Reproductive: No Respiratory: No Immunizations Current: Yes Migraines: Yes Radiation Therapy: No Renal Failure: No Seizures: Yes Sleep Apnea: No Thyroid Disease: No Ulcer: No Tetanus Vaccination: < 5 Years Influenza Vaccination: No Past Surgical History Abdominal Surgery: Yes (UMBILICAL HERNIA REPAIR,J-TUBE PLACEMENT, J-TUBE REMOVAL) AICD: No Cardiac Surgery: No Coronary Artery Bypass Graft: No Ear Surgery: No Endocrine Surgery: No Eye Surgery: No Genitourinary Surgery: No Gynecologic Surgery: No Joint Replacement: No Neurologic Surgery: No Oral Surgery: No Pacemaker: No Thoracic Surgery: No Other Surgery: Yes (UMBILICAL HERNIA REPAIR, J-TUBE PLACEMENT, removed part of small instestine) Family History Family Myocardial Infarction: Yes (FATHER AND TWO BROTHERS DUE TO MT) Social History Alcohol Use: No Tobacco Use: No Substance Use: Yes (marijuana) Allergies-Medications (Allergen,Severity, Reaction): Coded Allergies: metoclopramide (Unverified Adverse Reaction, Unknown, DIZZY, SYNCOPAL EPISODES , 08/24/17) Reported Meds & Prescriptions Reported Meds & Active Scripts Active Reported Coumadin (Warfarin) 10 Mg Tab 10 Mg PO DAILY Phenergan (Promethazine HCl) 25 Mg Tablet 25 Mg PO Q6H PRN Pantoprazole (Pantoprazole Sodium) 20 Mg Tab 20 Mg PO BID Zofran Odt (Ondansetron Odt) 4 Mg Tab 4 Mg SL Q6HR PRN [place] (Hydrocodone-Acetaminophen) 10-325 Mg Tab 1 Tab PO Q6H PRN Review of Systems General / Constitutional: No: Fever, Chills HENT: Positive: Rhinitis, Congestion, Ear Discharge, Earache, No: Sore Throat Cardiovascular: No: Chest Pain or Discomfort Respiratory: Positive: Cough Physical Exam Narrative GENERAL: Well-developed well-nourished male in no acute distress SKIN: Warm and dry. HEAD: Atraumatic. Normocephalic. EYES: Pupils equal and round. No scleral icterus. No injection or drainage. ENT: No nasal bleeding or discharge. Mucous membranes pink and moist. Tenderness to palpation over the left maxillary sinus. The left external ear canal is bloodied and obscures the view of the tympanic membrane. By contrast the right tympanic membrane is visible and appears normal. NECK: Trachea midline. No JVD. No lymphadenopathy. CARDIOVASCULAR: Regular rate and rhythm. No murmur appreciated. RESPIRATORY: No accessory muscle use. Clear to auscultation. Breath sounds equal bilaterally. Data Data Last Documented VS Vital Signs Date Time Temp Pulse Resp B/P (MAP) Pulse Ox O2 Delivery O2 Flow Rate FiO2 08/24/17 06:06 97.9 84 16 147/89 (108) 100 Room Air [facility] Medical Decision Making Medical Screen Exam Complete: Yes Emergency Medical Condition: Yes Medical Record Reviewed: Yes Differential Diagnosis Tympanic membrane rupture, otitis media, otitis externa, sinusitis Narrative Course The patient appears to have sinusitis on examination. By history he likely developed a serous otitis media which then spontaneously ruptured this evening. The plan is to discharge the patient with Augmentin, Flonase, ofloxacin otic solution. Recommended recheck of his left ear in 2 weeks. Discussed the importance of close INR monitoring while on Augmentin. He is stable for discharge. Diagnosis Primary Impression: Tympanic membrane perforation Additional Impression: Sinusitis Additional Instructions: Monitor INR closely while on the antibiotics. Medication as prescribed. Avoid getting water in the left ear canal. Follow-up with primary care physician in 2 weeks for recheck. Return for any emergent medical conditions. Med/Other Pt SpecificInfo: Prescription(s) given Scripts Fluticasone Nasal [place] (Flonase Nasal [place]) 50 Mcg/Act [place] 100 MCG EACH NARE BID for Allergies, #1 BOTTLE 0 Refills Prov: Inocencio Weinberg MD 08/24/17 Ofloxacin Otic Drops (Ofloxacin Otic Drops) 0.3 % Drops 10 DROP LEFT EAR DAILY for Infection for 10 Days, #1 BOTTLE 0 Refills Prov: Inocencio eWinberg MD 08/24/17 Amoxicillin-Clavulanate (Augmentin) 875-125 Mg Tab 1 TAB PO BID for Infection for 10 Days, #20 TAB 0 Refills Prov: Inocencio Weinberg MD 08/24/17 Disposition: 01 DISCHARGE HOME Condition: Stable Earle Chu Aug 24, 2017 06:39
== END 2017-08-24 06:47 | disposition home or self-care (01) ==
LOC: NEPD 06:01
DX: H72.92 Unspecified perforation of tympanic membrane, left ear (principal); J32.9 Chronic sinusitis, unspecified; F12.90 Cannabis use, unspecified, uncomplicated; F41.9 Anxiety disorder, unspecified; K21.9 Gastro-esophageal reflux disease without esophagitis; I10 Essential (primary) hypertension; R56.9 Unspecified convulsions; Z87.19 Personal history of other diseases of the digestive system; Z87.442 Personal history of urinary calculi
CPT/HCPCS: 99283